=== PATIENT | female | born 1970 | race Caucasian/White ===

== ENCOUNTER 2022-08-29 17:32 | Inpatient (IN) | payer MEDICAID ==
[~2022-08-29] VITALS: Ht 149.9 cm; Wt 71.3 kg
[2022-08-29 19:03] LABS: BASOPHILS % 0.8 % (0.0-2.0); EOSINOPHILS % 1.2 % (0.0-5.0); HEMATOCRIT. 37.2 % (36.0-48.0); HEMOGLOBIN. 12.7 g/dL (12.0-16.0); LYMPHOCYTES % 19.4 % (20.0-50.0); MEAN CORPUSCULAR HEMOGLOBIN 31.8 pg (28.0-32.0); MEAN CORPUSCULAR VOLUME 93.3 fL (81.0-99.0); MONOCYTES % 6.9 % (2.0-8.0); NEUTROPHILS % 71.7 % (40.0-76.0); PLATELET 207 x1000/uL (130-400); RED BLOOD CELL COUNT 3.99 mill/uL (4.2-5.4); RED CELL DISTRIBUTION WIDTH 16.5 % (11.6-14.6)
[2022-08-29 19:12] LABS: CHLORIDE 101 mEq/L (98-107)
[2022-08-29 19:15] LABS: PROTHROMBIN TIME 10.5 sec (9.6-11.0)
[2022-08-29 21:49] VITALS: BP 120/78
[2022-08-29] MEDS ORDERED: ALBE200T8 PO (22:45)
[2022-08-29] MEDS ORDERED: [UNRECOGNIZED DRUG - CODE] PO (22:45)
[2022-08-30] VITALS: BP 111/65
[2022-08-30 04:00] VITALS: BP 117/64
[2022-08-30 05:31] LABS: EOSINOPHILS % 1.5 % (0.0-5.0); HEMATOCRIT. 35.4 % (36.0-48.0); HEMOGLOBIN. 12.2 g/dL (12.0-16.0); LYMPHOCYTES % 23.4 % (20.0-50.0); MEAN CORPUSCULAR HEMOGLOBIN 32.1 pg (28.0-32.0); MEAN CORPUSCULAR VOLUME 93.6 fL (81.0-99.0); MEAN PLATELET VOLUME 9.6 fl (7.4-10.4); MONOCYTES % 7.1 % (2.0-8.0); PLATELET 217 x1000/uL (130-400); RED BLOOD CELL COUNT 3.78 mill/uL (4.2-5.4)
[2022-08-30 06:00] LABS: CHLORIDE 104 mEq/L (98-107)
[2022-08-30 06:08] LABS: HDL CHOLESTEROL 39 mg/dL (40-59); LDL CHOLESTEROL 156 mg/dL (5-100)
[2022-08-30 08:00] VITALS: BP 124/74
[2022-08-30] MEDS: ASPIRIN 81MG TABLET PO SCH (10:14)
[2022-08-30] MEDS ORDERED: ONDANSETRON HCL 4MG/2ML INJ IV PRN (10:45)
[2022-08-30] MEDS ORDERED: HYDROCODONE/ACETAMINOPHEN 5/325MG TABLET PO PRN (10:45)
[2022-08-30] MEDS ORDERED: ACETAMINOPHEN 650MG/20.3ML UDC PO PRN (10:45)
[2022-08-30] MEDS ORDERED: NALOXONE HCL 0.4MG/ML VIAL IV PRN (11:00)
[2022-08-30 16:00] VITALS: BP 124/72
[2022-08-30 20:00] VITALS: BP 118/72
[2022-08-30] MEDS: ATORVASTATIN CALCIUM 20MG TABLET PO SCH (21:44)
[2022-08-30] MEDS: [UNRECOGNIZED DRUG - OTHER] PO SCH (21:44)
[2022-08-30] MEDS: ALBENDAZOLE 200 MG PO SCH (21:59)
[2022-08-31] VITALS: BP 123/72
[2022-08-31 04:00] VITALS: BP 108/65
[2022-08-31 07:00] LABS: BASOPHILS % 0.9 % (0.0-2.0); EOSINOPHILS % 1.6 % (0.0-5.0); HEMATOCRIT. 35.5 % (36.0-48.0); HEMOGLOBIN. 12.5 g/dL (12.0-16.0); MEAN CORPUSCULAR HEMOGLOBIN 32.8 pg (28.0-32.0); MEAN PLATELET VOLUME 8.5 fl (7.4-10.4); MONOCYTES % 6.8 % (2.0-8.0); NEUTROPHILS % 61.7 % (40.0-76.0); PLATELET 197 x1000/uL (130-400); RED BLOOD CELL COUNT 3.82 mill/uL (4.2-5.4); RED CELL DISTRIBUTION WIDTH 16.7 % (11.6-14.6)
[2022-08-31 07:28] LABS: CHLORIDE 103 mEq/L (98-107)
[2022-08-31 08:00] VITALS: BP 131/75
[2022-08-31] MEDS: [UNRECOGNIZED DRUG - OTHER] PO SCH ×3 (08:14→18:35)
[2022-08-31] MEDS: ASPIRIN 81MG TABLET PO SCH (08:14)
[2022-08-31] MEDS: ALBENDAZOLE 200 MG PO SCH ×2 (08:15→18:35)
[2022-08-31 12:00] VITALS: BP 156/55
[2022-08-31 16:00] VITALS: BP 138/71
[2022-08-31 20:00] VITALS: BP 123/61
[2022-08-31] MEDS: ATORVASTATIN CALCIUM 20MG TABLET PO SCH (21:19)
[2022-09-01] VITALS: BP 108/69
[2022-09-01 04:00] VITALS: BP 127/86
[2022-09-01] MEDS: ASPIRIN 81MG TABLET PO SCH (07:50)
[2022-09-01] MEDS: [UNRECOGNIZED DRUG - OTHER] PO SCH ×3 (07:56→17:35)
[2022-09-01] MEDS: ALBENDAZOLE 200 MG PO SCH ×3 (07:57→17:35)
[2022-09-01 08:00] VITALS: BP 137/76
[2022-09-01 12:00] VITALS: BP 121/68
[2022-09-01 16:00] VITALS: BP 102/64
[2022-09-01 20:11] VITALS: BP 115/69
[2022-09-01] MEDS: ATORVASTATIN CALCIUM 20MG TABLET PO SCH (20:12)
[2022-09-02] VITALS (8 sets, daily range): BP systolic 105–122; BP diastolic 61–84
[2022-09-02] MEDS: ALBENDAZOLE 200 MG PO SCH (06:40)
[2022-09-02] MEDS: [UNRECOGNIZED DRUG - OTHER] PO SCH ×2 (06:41→12:53)
[2022-09-02] MEDS: ASPIRIN 81MG TABLET PO SCH (07:37)
[2022-09-02 08:08] LABS: BASOPHILS % 1.2 % (0.0-2.0); EOSINOPHILS % 1.9 % (0.0-5.0); HEMATOCRIT. 39.2 % (36.0-48.0); HEMOGLOBIN. 13.5 g/dL (12.0-16.0); LYMPHOCYTES % 29.4 % (20.0-50.0); MEAN CORPUSCULAR HEMOGLOBIN 32.5 pg (28.0-32.0); MEAN CORPUSCULAR VOLUME 94.3 fL (81.0-99.0); MONOCYTES % 6.9 % (2.0-8.0); NEUTROPHILS % 60.6 % (40.0-76.0); RED BLOOD CELL COUNT 4.16 mill/uL (4.2-5.4); RED CELL DISTRIBUTION WIDTH 17.4 % (11.6-14.6)
[2022-09-02 08:25] LABS: CHLORIDE 104 mEq/L (98-107)
[2022-09-02] MEDS ORDERED: ASPI-1160 PO ×2 (09:29)
[2022-09-02] MEDS ORDERED: ATOR20TA PO ×2 (09:29)
[2022-09-02 10:07] LABS: PLATELET 201 x1000/uL (130-400)
[2022-09-02] MEDS ORDERED: ATOR20TA65 MT (12:22)
[2022-09-02] MEDS ORDERED: ASPI-1497 MT (12:22)
== END 2022-09-02 14:48 | disposition home health service (06) | DRG 47 ==
LOC: ER 17:32 → 3WST 20:35 → EDBEDREQTM 20:38 → EDBEDREQ 20:38
PROVIDERS: ADMIT Internal Medicine; ATTEND Internal Medicine
DX: G45.9 Transient cerebral ischemic attack, unspecified (principal); B69.0 Cysticercosis of central nervous system; E78.5 Hyperlipidemia, unspecified; D72.819 Decreased white blood cell count, unspecified; M48.02 Spinal stenosis, cervical region; Z98.2 Presence of cerebrospinal fluid drainage device; I69.359 Hemiplegia and hemiparesis following cerebral infarction affecting unspecified side
CPT/HCPCS: 36415; 70551; 71045; 72141; 80048; 80053; 80061; 83036; 84145; 84443; 84484; 85025; 93005; 93306; 93880; 97110; 97162; 97166; 99291